=== PATIENT | male | born 1980 | race Caucasian/White ===

== ENCOUNTER 2018-07-10 11:46 | Outpatient (CLI) | payer OTHER ==
[~2018-07-10 11:46] MED LIST: ALLEGRA ALLERG180 MG PO; GILTUSS TR TAB1 EACH PO; PEPCID40 MG PO; SEROQUEL XR150 MG; SYNTHROID50 MCG; ZOFRAN4 MG PO
== END 2018-07-10 13:05 | disposition home or self-care (01) ==
LOC: LAB 11:46
DX: J11.1 Influenza due to unidentified influenza virus with other respiratory manifestations (principal); J06.9 Acute upper respiratory infection, unspecified

== ENCOUNTER 2019-03-04 09:39 | Outpatient (CLI) | payer OTHER | END 2019-03-04 15:00 | disposition home or self-care (01) | LOC: LAB 09:39 | DX: J11.1 Influenza due to unidentified influenza virus with other respiratory manifestations (principal); A49.8 Other bacterial infections of unspecified site ==

== ENCOUNTER 2019-08-08 05:57 | Emergency (ER) | payer OTHER ==
[~2019-08-08] VITALS: Ht 170.2 cm; Wt 77.1 kg
== END 2019-08-08 11:43 | disposition home or self-care (01) ==
LOC: ER 05:57
DX: M94.0 Chondrocostal junction syndrome [Tietze] (principal); R07.89 Other chest pain

== ENCOUNTER 2019-09-03 10:52 | Outpatient (CLI) | payer OTHER | END 2019-09-03 11:52 | disposition home or self-care (01) | LOC: NUCLEAR 10:52 | DX: I20.1 Angina pectoris with documented spasm (principal) ==

== ENCOUNTER 2019-12-23 22:09 | Emergency (ER) | payer OTHER ==
[~2019-12-23] VITALS: Ht 170.2 cm; Wt 77.1 kg
== END 2019-12-24 01:36 | disposition home or self-care (01) ==
LOC: ER 22:09
DX: R53.1 Weakness (principal)

== ENCOUNTER 2021-06-15 09:00 | Outpatient (CLI) | payer OTHER | END 2021-06-15 09:15 | disposition home or self-care (01) | LOC: PPH VACUNA 09:00 | PROVIDERS: ATTEND Emergency Medicine Pediatric Emergency Medicine | DX: Z23 Encounter for immunization (principal) ==

== ENCOUNTER 2021-08-28 15:13 | Emergency (ER) | payer OTHER ==
[~2021-08-28] VITALS: Ht 170.2 cm; Wt 111.1 kg
[2021-08-28] MEDS ORDERED: HYDROCHLOROTHIA25 MG PO (15:37)
[2021-08-28] MEDS ORDERED: XANAX0.25 MG PO (15:38)
[2021-08-28] MEDS ORDERED: REMERON15 M1 PO (15:38)
[2021-08-28] MEDS ORDERED: MUPIROCIN15 GM TOP (19:18)
[2021-08-28] MEDS ORDERED: ANTIFUNGAL113 GM TOP (19:18)
== END 2021-08-28 19:22 | disposition home or self-care (01) ==
LOC: ER 15:13
DX: N48.1 Balanitis (principal)

== ENCOUNTER 2022-06-30 16:17 | Emergency (ER) | payer OTHER ==
[~2022-06-30] VITALS: Ht 170.2 cm; Wt 108.9 kg
[~2022-06-30 16:17] MED LIST changes: +ANTIFUNGAL113 GM TOP; +HYDROCHLOROTHIA25 MG PO; +MUPIROCIN15 GM TOP; +REMERON15 M1 PO; +XANAX0.25 MG PO
[2022-06-30] MEDS ORDERED: TRAZODONE HCL50 MG PO (17:41)
[2022-06-30] MEDS ORDERED: LEXAPRO5 MG PO (17:42)
== END 2022-06-30 19:11 | disposition home or self-care (01) ==
LOC: ER 16:17
DX: U07.1 COVID-19 (principal)